=== PATIENT | female | born 1945 | race Caucasian/White ===

== ENCOUNTER 2017-12-13 09:25 | Emergency (ER) | payer MEDICARE, OTHER, SELFPAY | END 2017-12-13 12:35 | disposition home or self-care (01) | PROVIDERS: Emergency Provider Emergency Medicine; Family Provider Internal Medicine; PCP Internal Medicine; Visit Provider Emergency Medicine | DX: I49.3 Ventricular premature depolarization (principal); R07.89 Other chest pain | CPT/HCPCS: 36415; 71010; 71045; 80053; 81003; 81015; 84484; 85025; 85610; 85730; 93005; 93010; 99058; 99285 ==

== ENCOUNTER 2018-03-12 09:40 | Day surgery (SDC) | payer MEDICARE, OTHER, SELFPAY ==
--- NOTE | 2018-03-12 | PATH_ITS ---
[facility] Accession Number: [id number] . 01 Material submitted: . PART A: ASCENDING COLON POLYP PART B: COLON POLYP AT 36CM . 02 Diagnosis: A. Ascending Colon, Polyp, Biopsy: Tubular adenoma. . B. Colon, Polyp at 36 cm, Biopsy: Vegetable material only. Additional levels were examined. No colonic tissue present. MRV/03/15/2018 . 02 Electronically signed: . Beth Junior MD, Pathologist NPI- [id number] . 01 Gross description: . Part A: ASCENDING COLON POLYP: Received in formalin is 1 fragment(s) of vazquez, soft tissue measuring 0.4 x 0.3 x 0.2 cm submitted entirely in 1 cassette(s) Part B: COLON POLYP AT 36CM: Received in formalin is 1 fragment(s) of vazquez, soft tissue measuring 0.4 x 0.3 x 0.1 cm submitted entirely in 1 cassette(s) /TRC /TRC . 02 Pathologist provided ICD-10: D12.2 . 02 CPT . 544273, [id number] Performed at: 01 [facility] [address] [id number] MD Jordi Ambriz MD Phone: [phone] Performed at: 02 [facility] [address] [place], [place] [id number] MD Jared Bowden MD Phone: [phone]
[2018-03-12] MEDS: SODIUM CHLORIDE 0.9% 1,000 ML 200 ML IV (09:57)
[2018-03-12 10:05] VITALS: BP 122/65; PULSE 74; RESP 16; TEMP 36.4; O2SAT 94; BMI 29.5
--- NOTE | 2018-03-12 10:46 | PM.HP.1 ---
History of Present Illness Date Patient Seen: 03/12/18 Time Patient Seen: 10:47 Chief complaint: colonoscopy [id number] Narrative: Patient is a woman here for a screening colonoscopy. Her last exam was 5 years ago. She had multiple polyps removed at that time. No history of rectal bleeding. No family history of colon cancer. Patient History Surgical History History of carpal tunnel surgery of right wrist (Resolved) History of cone biopsy of cervix (Resolved) History of laparoscopy (Resolved) Family & Social History Social History: household members none Meds Home Medications Medication Instructions Recorded Confirmed Type CHOLECALCIFEROL (VITAMIN D3) 2,000 iu PO PRN #0 03/22/12 History (Vitamin D-3) aspirin 325 mg PO QDAY #0 04/12/17 History metformin [Glucophage XR] 750 mg PO [facility] #0 04/12/17 History Review of Systems Review of Systems All systems reviewed & are unremarkable except as noted in HPI and below Exam Vital Signs (past 8 hours): - 03/12/18 10:05 Temperature 97.5 F L Pulse Rate 74 Respiratory Rate 16 Blood Pressure 122/65 H Pulse Oximetry 94 Oxygen Delivery Method Room Air Narrative Exam Narrative: Operative no apparent distress. Lungs are clear to auscultation without rales or rhonchi. Heart regular rate and rhythm without murmur gallop. Abdomen is protuberant soft nontender without mass or hernia. Alert and oriented x3. Assessment & Plan (1) Screening for colon cancer: Current visit: Yes Status: Acute Plan: Assessment/Plan Narrative: Will proceed with colonoscopy. I have discussed the procedure and the rationale with the patient including risks of bleeding, perforation which would necessitate a major operation, failure to find remove all lesions and the potential to tattoo. They appeared to understand and wished to proceed.
--- NOTE | 2018-03-12 10:51 | P.HP_ITS ---
History of Present Illness Date Patient Seen: 03/12/18 Time Patient Seen: 10:47 Chief complaint: colonoscopy [id number] Narrative: Patient is a woman here for a screening colonoscopy. Her last exam was 5 years ago. She had multiple polyps removed at that time. No history of rectal bleeding. No family history of colon cancer. Patient History Surgical History History of carpal tunnel surgery of right wrist (Resolved) History of cone biopsy of cervix (Resolved) History of laparoscopy (Resolved) Family & Social History Social History: household members none Meds Home Medications Medication Instructions Recorded Confirmed Type CHOLECALCIFEROL (VITAMIN D3) 2,000 iu PO PRN #0 03/22/12 History (Vitamin D-3) aspirin 325 mg PO QDAY #0 04/12/17 History metformin [Glucophage XR] 750 mg PO [facility] #[facility] 04/12/17 History Review of Systems Review of Systems All systems reviewed & are unremarkable except as noted in HPI and below Exam Vital Signs (past 8 hours): - 03/12/18 10:05 Temperature 97.5 F L Pulse Rate 74 Respiratory Rate 16 Blood Pressure 122/65 H Pulse Oximetry 94 Oxygen Delivery Method Room Air Narrative Exam Narrative: Operative no apparent distress. Lungs are clear to auscultation without rales or rhonchi. Heart regular rate and rhythm without murmur gallop. Abdomen is protuberant soft nontender without mass or hernia. Alert and oriented x3. Assessment & Plan (1) Screening for colon cancer: Current visit: Yes Status: Acute Plan: Assessment/Plan Narrative: Will proceed with colonoscopy. I have discussed the procedure and the rationale with the patient including risks of bleeding, perforation which would necessitate a major operation, failure to find remove all lesions and the potential to tattoo. They appeared to understand and wished to proceed.
--- NOTE | 2018-03-12 10:51 | PM.PREOP ---
Pre-operative Note Interval Note Pre-op Check: Yes History & Physical exam performed today by Physician Changes: No ASA Class (for procedural sedation): I
--- NOTE | 2018-03-12 10:51 | SUR.OPER ---
to endo from opd via cart respirations unlabored iv patent positioned per self for procedure
--- NOTE | 2018-03-12 11:36 | PM.OP.ENDO ---
Operative Date/Time/Diagnoses Date of procedure: 03/12/18 Time of procedure: 11:36 Pre-op diagnosis: Screening examination. Last exam was about 5 years ago Post-op diagnosis: same (Sigmoid diverticulosis extensive with tortuosity. Polyps removed in the ascending colon and 35 cm.) Procedure & Clinicians Study performed: Colonoscopy with cold biopsy and hot snare polypectomy Same procedure as scheduled: Yes Indications: Screening. Personal history of polyps Surgeon: Deyvi Edwards Procedure Notes SCOAP/Timeout: Performed Procedure in detail: The patient was placed in the left lateral decubitus position and underwent IV sedation directed by the surgeon consisting of fentanyl and Versed. Digital exam was unremarkable except for decreased sphincter tone. The scope was inserted and advanced through the rectum into the sigmoid, descending, transverse, and ascending colon. The patient was noted to have extensive sigmoid diverticulosis with tortuosity. In fact I had to replace the regular scope with a pediatric scope in order to negotiate through her sigmoid.. The cecum was reached identified by the ileocecal valve and the appendiceal opening. The scope was gradually brought out. Polyps were found at[the ascending colon and at 35 cm from the anal verge. Cold biopsy forceps were used to remove the ascending colon polyp which was quite small. The lesion at 35 cm may have been a redundant fold but I could not get it to flatten out and therefore removed it.]. The scope ultimately was retroflexed in the rectum. The appearance was remarkable for internal hemorrhoids without ulceration.. The scope was removed and the patient tolerated the procedure well Scope withdrawal time: 14 min Sedation minutes: 41 Findings: diverticulosis, internal hemorrhoids and other findings (Quite tortuous through the sigmoid) Recommendations: Colonscopy in 5 years Follow up: as needed Disposition: PACU
--- NOTE | 2018-03-12 11:36 | SUR.OPER ---
tolerated procedure well
[2018-03-12] MEDS: fentaNYL 250 MCG/5 ML INJ IV (11:40)
[2018-03-12] MEDS: MIDAZOLAM 5 MG/5 ML VIAL 6 MG IV (11:41)
[2018-03-12 11:43] VITALS: BP 115/70; PULSE 77; RESP 15; TEMP 36.4; O2SAT 95
[2018-03-12 11:46] VITALS: BP 118/64; PULSE 76; RESP 16; O2SAT 95
[2018-03-12 11:49] VITALS: BP 112/61; RESP 16; TEMP 36.4; O2SAT 95
[2018-03-12 11:56] VITALS: BP 107/66; PULSE 67; RESP 15; TEMP 36.1; O2SAT 95
[2018-03-12 12:30] VITALS: BP 110/62; PULSE 72; RESP 16; TEMP 36.4; O2SAT 96
== END 2018-03-12 12:40 | disposition home or self-care (01) ==
PROVIDERS: PCP Internal Medicine; Visit Provider Specialist
PROC: 0DJD8ZZ Inspection of Lower Intestinal Tract, Via Natural or Artificial Opening Endoscopic (ICD-10-PCS; CPT 45378; principal; 2018-03-12 11:00)
DX: Z12.11 Encounter for screening for malignant neoplasm of colon (principal); K57.30 Diverticulosis of large intestine without perforation or abscess without bleeding; Z86.010 Personal history of colon polyps; K64.8 Other hemorrhoids; D12.2 Benign neoplasm of ascending colon
CPT/HCPCS: 45385; 45380; 88305; 99152; 99153; J2250; J3010

== ENCOUNTER → 2019-01-29 10:33 | Outpatient (CLI) | payer MEDICARE, OTHER, SELFPAY ==
[2019-01-29 12:42] LABS: Appearance Urine UA CLOUDY; Bilirubin Urine UA NEGATIVE (NEGATIVE); Color Urine UA YELLOW; Glucose Urine UA NEGATIVE (Negative); Ketones Urine UA NEGATIVE (NEGATIVE); Leukocyte Esterase Urine UA 3+ (NEGATIVE); Nitrite Urine UA NEGATIVE (Negative); Occult Blood Urine UA TRACE-LYSED (Negative); Protein Urine UA NEGATIVE (Negative); Specific Gravity Urine UA 1.015 (1.000-1.035); Urobilinogen Urine UA 0.2 E.U./dL (0.2)
[2019-01-29 12:58] LABS: Amorphous Sediment Urine 1+; Bacteria Urine Many (>30); Culture Indicated Urine Specimen Cultured; Mucus Urine 1+ (Negative); RBC Urine 0-1/HPF (0-5/HPF); Squamous Epithelial Cell Urine 1-5 /HPF (0-5/HPF); WBC Urine 30-100/HPF (0-5/HPF)
[2019-01-29 16:06] LABS: Creatinine Urine Random 49.6 mg/dL; Protein (Total) Urine Random 13 mg/dL (0-12); Protein Creatinine Ratio Urine 0.26 GRAM/24H
== END ==
PROVIDERS: PCP Internal Medicine; Visit Provider Internal Medicine
DX: R82.998 Other abnormal findings in urine (principal)
CPT/HCPCS: 81001; 82570; 84156; 87086

== ENCOUNTER → 2019-05-16 11:36 | Outpatient (CLI) | payer MEDICARE, OTHER, SELFPAY ==
--- NOTE | 2019-05-16 | DI.RAD.S_ITS ---
PROCEDURE: XR LUMBAR SPINE 2-3V INDICATIONS: POLYCYSTIC OVARIES TECHNIQUE: 3 views of the lumbar spine were acquired. COMPARISON: None. FINDINGS: Bones: 5 [id number] vertebrae are present. There is normal bony alignment. No vertebral body compression fractures. No suspicious bony lesions. There is only mild degenerative disc disease over the middle and lower thirds of the LS-spine and facet osteoarthritis becomes progressively more prominent from L3-S1. Soft tissues: Overlying bowel gas pattern is normal. No suspicious soft tissue calcifications. IMPRESSION: Mild to moderate degenerative disc disease and facet osteoarthritis overall without subluxation. No prior compression fracture found. Spinal and foraminal stenosis over the lower third of the LS-spine may be present given the degree of degeneration found in that area. Dictated by: Colt Rizo M.D. on 05/16/2019 at 12:36 Approved by: Colt Rizo M.D. on 05/16/2019 at 12:37
--- NOTE | 2019-05-16 | DI.RAD.S_ITS ---
PROCEDURE: XR HIP W PEL IF DONE LT 2V INDICATIONS: POLYCYSTIC OVARIES TECHNIQUE: AP pelvis with lateral view(s) of the left hip. COMPARISON: None. FINDINGS: Bones: No fractures or dislocations. Pelvic ring appears intact. No suspicious bony lesions. Soft tissues: The visualized bowel gas pattern is normal. No suspicious soft tissue calcifications. IMPRESSION: There is symmetric minimal hip joint osteoarthritis, no trauma. Dictated by: Colt Rizo M.D. on 05/16/2019 at 12:37 Approved by: Colt Rizo M.D. on 05/16/2019 at 12:38
== END ==
PROVIDERS: PCP Internal Medicine; Visit Provider Internal Medicine
DX: M25.552 Pain in left hip (principal); E28.2 Polycystic ovarian syndrome; K11.9 Disease of salivary gland, unspecified; M51.36 Other intervertebral disc degeneration, lumbar region; M51.37 Other intervertebral disc degeneration, lumbosacral region; M47.816 Spondylosis without myelopathy or radiculopathy, lumbar region; M47.817 Spondylosis without myelopathy or radiculopathy, lumbosacral region
CPT/HCPCS: 72100; 73502

== ENCOUNTER 2019-06-03 06:13 | Day surgery (SDC) | payer MEDICARE, OTHER, SELFPAY ==
[2019-06-03] MEDS: PROPARACAINE 0.5% OPHTH SOL 2 DROPS EYE-OP (07:14)
[2019-06-03] MEDS: CATARACT EYE COMPOUND (10 DROPS/SYRINGE) 3 DROPS EYE-OP (07:15)
[2019-06-03 07:21] VITALS: BP 120/64; PULSE 69; RESP 15; TEMP 36.2; O2SAT 95; BMI 30.9
--- NOTE | 2019-06-03 07:46 | PM.PREOP ---
Pre-operative Note Interval Note History & Physical reviewed/Exam performed by Physician: No Changes to H&P: No
--- NOTE | 2019-06-03 07:46 | PM.OP.1 ---
Operative Date/Time/Diagnoses Pre-op diagnosis: Nuclear cataract right eye Procedure & Clinicians Procedure: Cataract Surgery Same procedure as scheduled: Yes Surgeon: Pablo Mayorga Anesthesia Type: MAC +/- and Sedation Operative Notes Procedure in detail: Patient brought to the operating suite. Tetracaine drops placed in the right eye. Marking instrument was used to rob the vertical and horizontal meridians. Patient was prepped and draped in sterile manner. Wire lid speculum was placed in the eye. Marking instrument was used to rob the 10 degree meridian. Betadine drops were placed on the eye. This was irrigated. Lidocaine jelly was placed on the eye. A paracentesis port was created with a side-port blade. 0.1 mL 1% preservative free lidocaine was injected into the anterior chamber. The anterior chamber was deepened with viscoelastic. 2.6 mm keratome was used to create a temporal clear corneal incision. Cystotome and Utrata forceps were used to create continuous tear capsulorrhexis. Balanced salt solution was used to hydro dissect the nucleus. The phacoemulsification handpiece was inserted and the nucleus was removed using the stop and chop technique. The irrigation aspiration handpiece was inserted and the remaining cortex was removed. Anterior chamber was deepened with viscoelastic. An Fernandez [id number] intraocular lens with a power of 20.0 was injected into the capsular bag. Irrigation aspiration handpiece was inserted and the remaining viscoelastic was removed. The lens was rotated to the 10 degree meridian. Incision was hydrated with balanced salt solution and found to be leak free with pressure with Weck-Angeline sponges. 0.1 mL Vigamox injected anterior chamber. 0.3 mL Kenalog 10 mg was injected subconjunctivally. Lid speculum was removed. The patient left the operating room in excellent condition. Complications: none Post-operative Condition: stable Disposition: same day surgery
[2019-06-03] MEDS: PHENYLEPHRINE/LIDOCAINE VIAL (OR) 0.2 ML EYE-OP (07:55)
[2019-06-03] MEDS: TRIAMCINOLONE 50 MG/5 ML VIAL INJ (07:56)
[2019-06-03] MEDS: BALANCED SALT IRRIG SOLN NO.2 500 ML, EPINEPHrine 1 MG IRR (07:57)
[2019-06-03] MEDS: LIDOCAINE JELLY 2% 5 ML 1 APPLIC TOP (07:57)
[2019-06-03] MEDS: TETRACAINE 0.5% OPHTH DROPS 4 ML 2 DROPS EYE-OP (07:57)
[2019-06-03] MEDS: CHONDROIDTIN/SOD HYALURONATE 1.05 ML SYRINGE INTRAOCULA (07:57)
[2019-06-03] MEDS: MOXIFLOXACIN 0.5% OPHTH 60 DROPS/BOTTLE DROPS EYE-BOTH (07:58)
[2019-06-03 08:20] VITALS: BP 112/69; PULSE 79; RESP 16; TEMP 36.7; O2SAT 94
== END 2019-06-03 08:25 ==
LOC: OR 06:17
PROVIDERS: PCP Internal Medicine; Visit Provider Ophthalmology
PROC: (CPT 66984; principal; 2019-06-03 07:45)
DX: H25.11 Age-related nuclear cataract, right eye (principal)
CPT/HCPCS: 66984; J0171; J2250; J3010; J3301; V2787

== ENCOUNTER 2019-06-17 06:42 | Day surgery (SDC) | payer MEDICARE, OTHER, SELFPAY ==
[2019-06-17 08:03] VITALS: BP 115/67; PULSE 67; RESP 16; TEMP 36.4; O2SAT 95; BMI 30.9
[2019-06-17] MEDS: CATARACT EYE COMPOUND (10 DROPS/SYRINGE) 3 DROPS EYE-OP (08:10)
[2019-06-17] MEDS: PROPARACAINE 0.5% OPHTH SOL 2 DROPS EYE-OP (08:11)
--- NOTE | 2019-06-17 08:43 | PM.PREOP ---
Pre-operative Note Interval Note History & Physical reviewed/Exam performed by Physician: No Changes to H&P: No
--- NOTE | 2019-06-17 08:43 | PM.OP.1 ---
Operative Date/Time/Diagnoses Pre-op diagnosis: Nuclear Cataract Left eye Post-op diagnosis: same Procedure & Clinicians Surgeon: Pablo Mayorga Anesthesia Type: MAC +/- and Sedation Operative Notes Procedure in detail: Patient brought to the operating suite. Tetracaine drops placed in the left eye. Patient was prepped and draped in sterile manner. Wire lid speculum was placed in the eye. Betadine drops were placed on the eye. This was irrigated. Lidocaine jelly was placed on the eye. A paracentesis port was created with a side-port blade. 0.1 mL 1% preservative free lidocaine was injected into the anterior chamber. The anterior chamber was deepened with viscoelastic. 2.6 mm keratome was used to create a temporal clear corneal incision. Cystotome and Utrata forceps were used to create continuous tear capsulorrhexis. Balanced salt solution was used to hydro dissect the nucleus. The phacoemulsification handpiece was inserted and the nucleus was removed using the stop and chop technique. The irrigation aspiration handpiece was inserted and the remaining cortex was removed. Anterior chamber was deepened with viscoelastic. An Fernandez ZCB00 intraocular lens with a power of 19.5 was injected into the capsular bag. Irrigation aspiration handpiece was inserted and the remaining viscoelastic was removed. Incision was hydrated with balanced salt solution and found to be leak free with pressure with Weck-Angeline sponges. 0.1 mL Vigamox injected anterior chamber. 0.3 mL Kenalog 10 mg was injected subconjunctivally. Lid speculum was removed. The patient left the operating room in excellent condition. Complications: none Post-operative Condition: stable Disposition: same day surgery
[2019-06-17] MEDS: LIDOCAINE JELLY 2% 5 ML 1 APPLIC TOP (09:01)
[2019-06-17] MEDS: TRIAMCINOLONE 50 MG/5 ML VIAL INJ (09:01)
[2019-06-17] MEDS: CHONDROIDTIN/SOD HYALURONATE 1.05 ML SYRINGE INTRAOCULA (09:01)
[2019-06-17] MEDS: PHENYLEPHRINE/LIDOCAINE VIAL (OR) 0.2 ML EYE-OP (09:01)
[2019-06-17] MEDS: BALANCED SALT IRRIG SOLN NO.2 500 ML, EPINEPHrine 1 MG IRR (09:02)
[2019-06-17] MEDS: MOXIFLOXACIN 0.5% OPHTH 60 DROPS/BOTTLE DROPS EYE-BOTH (09:02)
[2019-06-17] MEDS: TETRACAINE 0.5% OPHTH DROPS 4 ML 2 DROPS EYE-OP (09:02)
[2019-06-17 09:16] VITALS: BP 111/67; PULSE 69; RESP 16; TEMP 36.2; O2SAT 92
== END 2019-06-17 09:26 | disposition home or self-care (01) ==
LOC: OR 06:45
PROVIDERS: PCP Internal Medicine; Visit Provider Ophthalmology
PROC: (CPT 66984; principal; 2019-06-17 08:45)
DX: H25.12 Age-related nuclear cataract, left eye (principal); E11.9 Type 2 diabetes mellitus without complications; F17.210 Nicotine dependence, cigarettes, uncomplicated
CPT/HCPCS: 66984; J0171; J2250; J3010; J3301

== ENCOUNTER → 2019-07-20 09:43 | Outpatient (CLI) | payer MEDICARE, OTHER, SELFPAY | PROVIDERS: PCP Internal Medicine; Visit Provider Nurse Practitioner | DX: R30.0 Dysuria (principal) | CPT/HCPCS: 87086 ==

== ENCOUNTER → 2019-07-30 09:44 | Outpatient (CLI) | payer MEDICARE, OTHER, SELFPAY ==
[2019-07-30 09:56] LABS: Bacteria Urine None Seen; RBC Urine None Seen (0-5/HPF); WBC Urine None Seen (0-5/HPF)
[2019-07-30 10:11] LABS: Appearance Urine UA CLEAR; Bilirubin Urine UA NEGATIVE (NEGATIVE); Color Urine UA YELLOW; Glucose Urine UA NEGATIVE (Negative); Ketones Urine UA NEGATIVE (NEGATIVE); Leukocyte Esterase Urine UA NEGATIVE (NEGATIVE); Nitrite Urine UA NEGATIVE (Negative); Occult Blood Urine UA TRACE-INTACT (Negative); Protein Urine UA NEGATIVE (Negative); Specific Gravity Urine UA <=1.005 (1.000-1.035); Urobilinogen Urine UA 0.2 E.U./dL (0.2)
[2019-07-30 10:20] LABS: pH Urine UA 6.5 (4.5-8.0)
[2019-07-30 10:22] LABS: Urine Comments Microscopic Normal
== END ==
PROVIDERS: PCP Internal Medicine; Visit Provider Internal Medicine
DX: N39.0 Urinary tract infection, site not specified (principal)
CPT/HCPCS: 81001

== ENCOUNTER → 2019-08-14 18:37 | Outpatient (ROUT) | payer MEDICARE, OTHER, SELFPAY | PROVIDERS: PCP Internal Medicine; Visit Provider Internal Medicine | DX: N39.0 Urinary tract infection, site not specified (principal) | CPT/HCPCS: 87086 ==

== ENCOUNTER → 2019-09-26 12:22 | Outpatient (ROUT) | payer MEDICARE, OTHER, SELFPAY | PROVIDERS: PCP Internal Medicine; Visit Provider Physician Assistant | DX: R39.9 Unspecified symptoms and signs involving the genitourinary system (principal) | CPT/HCPCS: 87077; 87086; 87186 ==

== ENCOUNTER → 2019-12-03 13:00 | Outpatient (CLI) | payer MEDICARE, OTHER, SELFPAY ==
--- NOTE | 2019-12-03 13:48 | DI.CT.S_ITS ---
PROCEDURE: CT ABDOMEN PELVIS WO/W CON INDICATIONS: Gross hematuria TECHNIQUE: Optional 5 mm thick noncontrast images acquired from the diaphragm to the symphysis pubis. After the administration of intravenous contrast, 5 mm thick images acquired from the diaphragm to the symphysis pubis after a 10-minute delay. 2 mm thick coronal and sagittal reformats were then performed of the kidneys and ureters. For radiation dose reduction, the following was used: automated exposure control, adjustment of mA and/or kV according to patient size. COMPARISON: None. FINDINGS: Image quality: Excellent. Lung bases: Lung bases are clear. Heart size is normal. Urinary system: Both kidneys are normal in size, without hydronephrosis or nephrolithiasis on pre-contrast images. No perinephric fat stranding. There is normal bilateral renal enhancement. Renal calyces appear normal in morphology when filled with contrast. Opacified portions of both ureters demonstrate normal caliber. Mild bladder wall thickening. Minimal air in the bladder. No calcified bladder stones. Incidental note is made of pelvic floor relaxation with a prominent cystocele, as well as a rectocele or a. Other solid organs: Liver is normal in size and enhancement. Gallbladder is unremarkable. Biliary system is non dilated. Pancreas enhances normally. Spleen is normal in size and enhancement. No adrenal nodules. Peritoneum and bowel: Bowel loops demonstrate normal wall thickness and caliber. No free fluid or air. Small hiatal hernia. Sigmoid diverticulosis without evidence of diverticulitis. Nodes and vessels: No retroperitoneal or mesenteric adenopathy by size criteria. Aorta and inferior vena cava are normal in size. Abdominal wall: No ventral hernias. Pelvis: No pathologic free pelvic fluid. No inguinal hernias or adenopathy. Bones: No suspicious bony lesions. No vertebral body compression fractures. Impressive bilateral L4-L5 and L5-S1 facet arthropathy. Canal stenosis at L4-L5. IMPRESSION: 1. No evidence of renal stones no ureteral stone, hydronephrosis, or malignancy. 2. Mild diffuse bladder wall thickening and small amount of air present in the bladder. If the patient has not undergone self-catheterization, findings would be consistent with cystitis. 3. Pelvic floor relaxation with prominent cystocele as well as a rectocele. 4. Sigmoid diverticulosis. 5. Advanced lower lumbar facet arthropathy, Canal stenosis at L4-L5. Dictated by: Slava Carnes M.D. on 12/03/2019 at 15:09 Approved by: Slava Carnes M.D. on 12/03/2019 at 15:16
== END ==
PROVIDERS: PCP Internal Medicine; Referring Provider Urology; Visit Provider Urology
DX: R31.0 Gross hematuria (principal); K44.9 Diaphragmatic hernia without obstruction or gangrene; K57.30 Diverticulosis of large intestine without perforation or abscess without bleeding; N81.10 Cystocele, unspecified; N81.6 Rectocele; M47.816 Spondylosis without myelopathy or radiculopathy, lumbar region; M48.061 Spinal stenosis, lumbar region without neurogenic claudication
CPT/HCPCS: 74178; Q9967

== ENCOUNTER → 2020-01-16 13:04 | Outpatient (CLI) | payer MEDICARE, OTHER, SELFPAY ==
[2020-01-16 14:25] LABS: Hemoglobin A1C% w Est Avg Glu 7.1 % (4.0-6.0)
== END ==
PROVIDERS: PCP Internal Medicine; Referring Provider Internal Medicine; Visit Provider Internal Medicine
DX: E11.9 Type 2 diabetes mellitus without complications (principal)
CPT/HCPCS: 36415; 83036

== ENCOUNTER → 2020-06-22 19:45 | Outpatient (ROUT) | payer MEDICARE, OTHER, SELFPAY ==
[2020-06-22 20:50] LABS: Hematocrit 40.5 % (36-46); Hemoglobin 13.1 g/dL (12.0-16.0); Mean Corpuscular HGB Conc 32.4 % (30-36); Mean Corpuscular Hemoglobin 30.1 PG (26-34); Mean Corpuscular Volume 92.9 fL (80-100); Platelet Count 330 X10^3/uL (150-400); Red Blood Cell Count 4.36 X10^6/uL (4.0-5.2); Red Cell Distribution Width 14.3 % (11.6-14.8); White Blood Cell Count 7.6 X10^3/uL (4.5-11.0)
[2020-06-22 21:03] LABS: Alanine Aminotransferase 22 IU/L (<35); Albumin 4.1 g/dL (3.5-5.0); Albumin Globulin Ratio 1.4 (1.0-2.8); Alkaline Phosphatase 89 U/L (38-126); Aspartate Aminotransferase 23 IU/L (14-36); BUN Creatinine Ratio 24.1 (6-22); Bilirubin Total 0.4 mg/dL (0.2-1.3); Blood Urea Nitrogen 14 mg/dL (7-17); Calcium 9.8 mg/dL (8.4-10.2); Carbon Dioxide 26 mmol/L (22-32); Chloride 107 mmol/L (98-107); Estimated Glomerular Filt Rate > 60.0 mL/min (>60); Globulin 2.9 g/dL (1.7-4.1); Glucose 90 mg/dL (80-110); HEMOLYSIS < 15 (0-50); Potassium 4.8 mmol/L (3.4-5.1); Sodium 137 mmol/L (137-145)
[2020-06-22 21:11] LABS: NT-proBNP (BNP-Adult 18+) 161 pg/mL (<125)
[2020-06-22 21:22] LABS: Neutrophils Absolute Manual 3572 /uL (3000-5900); RBC Morphology Normal Morphology; Total Cells Counted 100
[2020-06-22 21:38] LABS: TSH w/ Reflex to FT4 1.06 uIU/mL (0.47-4.68)
== END ==
PROVIDERS: PCP Internal Medicine; Visit Provider Internal Medicine
DX: E11.9 Type 2 diabetes mellitus without complications (principal); R53.83 Other fatigue; E78.5 Hyperlipidemia, unspecified; R06.02 Shortness of breath; R01.1 Cardiac murmur, unspecified; N39.0 Urinary tract infection, site not specified
CPT/HCPCS: 80053; 83880; 84443; 85025; 87086

== ENCOUNTER → 2020-08-12 19:46 | Outpatient (ROUT) | payer MEDICARE, OTHER, SELFPAY | PROVIDERS: PCP Internal Medicine; Visit Provider Physician Assistant | DX: N39.0 Urinary tract infection, site not specified (principal) | CPT/HCPCS: 87077; 87086; 87186 ==

== ENCOUNTER → 2020-10-19 18:49 | Outpatient (ROUT) | payer MEDICARE, OTHER, SELFPAY | PROVIDERS: PCP Internal Medicine; Visit Provider Family Medicine | DX: N39.0 Urinary tract infection, site not specified (principal) | CPT/HCPCS: 87086 ==

== ENCOUNTER → 2020-11-03 15:06 | Outpatient (ROUT) | payer MEDICARE, OTHER, SELFPAY | PROVIDERS: PCP Internal Medicine; Visit Provider Internal Medicine | DX: N39.0 Urinary tract infection, site not specified (principal) | CPT/HCPCS: 87077; 87086; 87186 ==

== ENCOUNTER → 2022-11-08 | Outpatient (CLI) | payer MEDICARE, OTHER, SELFPAY ==
--- NOTE | 2022-11-08 | DI.RAD.S_ITS ---
Bone Density Report Name: LISE GIBSON Age: 77 Sex: Female Ethnicity: White Date of : 1945 Indication: postmenopausal; screening for osteoporosis; Referring Provider: KALIN CHUNG Study: Bone densitometry was performed. Exam Date: November 08, 2022 Accession number: [id number] Bone Density: Region BMD T-score Z-score Classification AP Spine(L1-L4) 0.875 -1.6 0.9 Osteopenia Femoral Neck (Left) 0.725 -1.1 1.0 Osteopenia Total Hip (Left) 0.778 -1.3 0.5 Osteopenia Femoral Neck (Right) 0.722 -1.1 1.0 Osteopenia Total Hip (Right) 0.756 -1.5 0.3 Osteopenia Total Hip Mean 0.767 -1.4 0.4 Osteopenia World Health Organization criteria for BMD impression classify patients as: Normal (T-score at or above -1.0), Osteopenia (T-score between -1.0 and -2.5), or Osteoporosis (T-score at or below -2.5). 10-year Fracture Risk(1): Major Osteoporotic Fracture 10% Hip Fracture 2.7% Reported Risk Factors: [place] (), Neck BMD=0.725, BMI=29.2, smoking (1) FRAX(R) Version 3.08. Fracture probability calculated for an untreated patient. Fracture probability may be lower if the patient has received treatment. Impression: The patient has low bone mass, based on the Total Spine T-score. The patient has an estimated ten-year risk of hip fracture of 2.7% and an estimated ten-year risk of major fracture of 10%, based on the WHO FRAX algorithm. The patient has risk factors, including: smoking. Discussion: BONE DENSITY IS LOW AT ONE OR MORE SKELETAL SITES. This patient's lowest T-score is low at one or more skeletal sites. It meets the World Health Organization's (WHO) criteria for low bone mass (T-score between -1.0 and -2.5). The patient's 10-year risk of fracture as calculated by FRAX is less than the threshold where pharmacological therapy is recommended by the National Osteoporosis Foundation (NOF). However, all treatment decisions require clinical judgment and consideration of individual patient factors, including patient preferences, comorbidities, previous drug use, risk factors not captured in the FRAX model (e.g., frailty, falls, vitamin D deficiency, increased bone turnover, interval significant decline in bone density) and possible under or overestimation of fracture risk by FRAX. The patient should follow a healthful lifestyle (good nutrition with adequate calcium and vitamin D, and appropriate weight-bearing exercise). Follow-Up: Consider repeating this study in 2 to 3 years to reassess this patient's status, or sooner if there is some new clinical indication. Reported by: MARICRUZ MCCULLOUGH MD on 11/08/2022 10:19:00 AM.
== END ==
LOC: RAD 10:21
PROVIDERS: PCP Student in an Organized Health Care Education/Training Program; Referring Provider Student in an Organized Health Care Education/Training Program; Visit Provider Student in an Organized Health Care Education/Training Program
DX: Z78.0 Asymptomatic menopausal state (principal); Z13.820 Encounter for screening for osteoporosis; M85.88 Other specified disorders of bone density and structure, other site
CPT/HCPCS: 77080

== ENCOUNTER 2023-04-19 07:38 | Day surgery (SDC) | payer MEDICARE, OTHER, SELFPAY ==
--- NOTE | 2023-04-19 | PATH_ITS ---
[facility] Accession Number: [id number] No. of containers..01 Tissue . 01 Material submitted: . colon - ASCENDING . 01 Diagnosis: Ascending Colon Polyp, Biopsy: Tubular adenoma. [facility] 05/02/2023 1401 Local . 01 Electronically signed: . Jany Gonzalez MD, Pathologist NPI- [id number] . 01 Gross description: . ASCENDING : Received in formalin is 1 fragment(s) of vazquez, soft tissue measuring 1.1 x 0.5 x 0.3 cm submitted entirely in 1 cassette(s) /GET 04/20/2023 1531 Local . 01 Pathologist provided ICD-10: D12.2 . 01 CPT . 900969 Specimen Comment: A courtesy copy of this report has been sent to [phone] Performed at: 01 [facility] [address] [place] [id number] MD Jordi Ambriz MD Phone: [phone]
[2023-04-19] MEDS: LACTATED RINGERS 1,000 ML 42 ML IV (07:48)
[2023-04-19 07:58] VITALS: BMI 28.3
[2023-04-19 08:20] VITALS: BP 127/68; PULSE 57; RESP 16; TEMP 36.2; O2SAT 96
--- NOTE | 2023-04-19 09:53 | PM.OP.COLON ---
Operative Date/Time/Diagnoses Date of procedure: 04/19/23 Time of procedure: 09:53 Pre-op diagnosis: History of polyps Post-op diagnosis: same Procedure & Clinicians Study performed: Colonoscopy Same procedure as scheduled: Yes Surgeon: Andrea Pittman Procedure Notes Procedure in detail: Surgeon: Andrea Pittman MD Anesthesia: Wilfred Martinez CRNA Procedure: The patient was brought to the endoscopy suite, placed in left lateral decubitus position. The patient was connected to monitoring devices. A time-out was performed. Sedation was administered. Once the patient was adequately sedated, a digital rectal exam was performed and was normal. The scope was then inserted and advanced to the cecum where the appendiceal orifice was identified and photographed. The scope was then slowly withdrawn over greater than 6 minutes. The mucosa was thoroughly inspected. A 5 mm polyp was removed from the ascending colon with the cold forceps. No other abnormalities were seen. The scope was retroflexed in the rectum. No abnormalities were noted. The scope was straightened and removed. The patient was awakened and brought to recovery. Scope withdrawal time: 13 minutes Sedation time: 31 minute EBL: 2 mL Findings: 5 mm ascending colon polyp Post-procedure Disposition: PACU
[2023-04-19 09:55] VITALS: BP 102/70; PULSE 78; RESP 12; TEMP 36.5; O2SAT 92
--- NOTE | 2023-04-19 09:56 | PM.HP.1 ---
History of Present Illness History of Present Illness Date Patient Seen: 04/19/23 Time Patient Seen: 09:57 Chief complaint: SDC Narrative: Radha is a 78-year-old woman who is here for colonoscopy. Her last 1 was about 5 years ago and a polyp was removed that was a tubular adenoma. No known family history. [facility] Medical History (Updated 04/19/23 @ 09:57 by Andrea Pittman MD) Arrhythmia Diabetes mellitus First degree AV block Hearing loss History of UTI Surgical History History of carpal tunnel surgery of right wrist History of cone biopsy of cervix History of laparoscopy Social History household members: none Smoking Status: Current every day smoker alcohol intake: never Meds Home Medications and Allergies Home Medications Medication Instructions Recorded Confirmed Type Vitamin D3 Complete 2,000 iu PO DAILY ##0 03/22/12 04/19/23 History metformin 750 mg tablet,extended 500 mg PO BID ##0 04/12/17 04/19/23 History release 24 hr (Glucophage XR) pravastatin 1 tab PO QPM 06/03/19 04/19/23 History sodium,potassium,mag sulfates 17.5 See Rx Instructions PO .COMPLEX 03/02/23 04/19/23 Rx gram-3.13 gram-1.6 gram oral soln #354 mL (Suprep Bowel Prep Kit) aspirin 162 mg tablet,delayed 162 mg PO DAILY 04/19/23 04/19/23 History release Allergies Allergy/AdvReac Type Severity Reaction Status Date / Time No Known Drug Allergies Allergy Verified 04/19/23 07:58 Exam Vital Signs (past 8 hours): - 04/19/23 08:20 Temperature 97.2 F L Pulse Rate 57 L Respiratory Rate 16 Blood Pressure 127/68 Pulse Oximetry 96 Oxygen Delivery Method Room Air Oxygen Delivery Method Room Air Const General: healthy appearing Assessment & Plan Assessment and plan (1) History of colon polyps: Status: Acute Plan We reviewed the risks and benefits of colonoscopy and she would like to proceed.
[2023-04-19 10:03] VITALS: BP 102/64; PULSE 78; RESP 12; O2SAT 95
[2023-04-19 10:05] VITALS: BP 102/63; PULSE 72; RESP 18; TEMP 36.4; O2SAT 94
[2023-04-19 10:10] VITALS: BP 119/61; PULSE 70; RESP 16; O2SAT 95
== END 2023-04-19 10:30 | disposition home or self-care (01) ==
PROVIDERS: PCP Student in an Organized Health Care Education/Training Program; Referring Provider Surgery; Visit Provider Surgery
PROC: 0DJD8ZZ Inspection of Lower Intestinal Tract, Via Natural or Artificial Opening Endoscopic (ICD-10-PCS; CPT 45378; principal; 2023-04-19 09:00)
DX: Z12.11 Encounter for screening for malignant neoplasm of colon (principal); Z86.010 Personal history of colon polyps; D12.2 Benign neoplasm of ascending colon
CPT/HCPCS: 45380; J2704

== ENCOUNTER → 2024-03-03 07:58 | Outpatient (CLI) | payer MEDICARE, OTHER, SELFPAY ==
--- NOTE | 2024-03-03 07:59 | DI.US.S_ITS ---
PROCEDURE: US CAROTID DOPPLER BI INDICATIONS: CAROTID STENOSIS SCREEN / HYPERLIPIDEMIA TECHNIQUE: Color and pulse Doppler interrogation was performed of both carotid systems, with image documentation and velocity measurements. COMPARISON: None. FINDINGS: Stenosis calculations are based on SRU (Society of Radiologists in Ultrasound) criteria. Right side: Brachial blood pressure: 115/66 mm Hg. Common carotid artery peak systolic velocity: 39 cm/sec. Internal carotid artery peak systolic velocity: Greater than 411 cm/sec. Internal carotid artery end diastolic velocity: Greater than 200 cm/sec. External carotid artery peak systolic velocity: 79 cm/sec. ICA/CCA peak systolic ratio: Greater than 10.5 . Esqueda scale imaging description: Significant plaque. Secondary to tortuosity of vessel and ability to obtain values, the velocities are felt to be underestimated. Percent internal carotid artery stenosis: Significant high-grade stenosis . Vertebral artery: Flow direction is antegrade. Left side: Brachial blood pressure: 120/59 mm Hg. Common carotid artery peak systolic velocity: 84 cm/sec. Internal carotid artery peak systolic velocity: 195 cm/sec. Internal carotid artery end diastolic velocity: 78 cm/sec. External carotid artery peak systolic velocity: 67 cm/sec. ICA/CCA peak systolic ratio: 2.3 . Esqueda scale imaging description: Moderate plaque Percent internal carotid artery stenosis: 50-69% . Vertebral artery: Flow direction is antegrade. IMPRESSION: Significant high-grade occlusion, greater than 70%/near occlusion in the right internal carotid artery as above. 50-69% stenosis of the left internal carotid artery. Dictated by: Tasia Cordero M.D. on 03/03/2024 at 12:16 Approved by: Tasia Cordero M.D. on 03/03/2024 at 13:35
== END ==
LOC: US 07:59
PROVIDERS: PCP Student in an Organized Health Care Education/Training Program; Referring Provider Student in an Organized Health Care Education/Training Program; Visit Provider Student in an Organized Health Care Education/Training Program
DX: Z13.6 Encounter for screening for cardiovascular disorders (principal); E11.69 Type 2 diabetes mellitus with other specified complication; E78.5 Hyperlipidemia, unspecified; I65.23 Occlusion and stenosis of bilateral carotid arteries
CPT/HCPCS: 93880

== ENCOUNTER → 2024-10-03 09:26 | Outpatient (CLI) | payer MEDICARE, OTHER, SELFPAY ==
--- NOTE | 2024-10-03 09:28 | DI.CT.S_ITS ---
PROCEDURE: CT LUNG LOW DOSE SCREENING INDICATIONS: LUNG SCREENING TECHNIQUE: Noncontrast 2.0-2.5 mm thick sections acquired from the pulmonary apices to the posterior costophrenic angles. 7 mm thick axial MIP, and 5 mm coronal and sagittal reformats were then acquired. For radiation dose reduction, the following was used: automated exposure control, adjustment of mA and/or kV according to patient size. COMPARISON: None. FINDINGS: Image quality: Diagnostic. Lower Neck: No enlarged lymph nodes. Thyroid: No thyroid nodules which require sonographic follow up, per consensus guidelines. Axillae: No enlarged lymph nodes. Chest Wall: Unremarkable. Bones: Unremarkable. Lungs and Pleura: No pneumothorax or pleural effusions. No consolidation or suspicious nodules.. Bibasilar scarring Heart: Heart size is normal. No pericardial effusion. Thoracic Vessels: The aorta and pulmonary arteries demonstrate normal size. Mediastinum and Mee: No enlarged lymph nodes. Esophagus: No wall thickening. No hiatal hernia. Upper Abdomen: Visualized upper abdomen solid organs and bowel loops appear normal. IMPRESSION: No suspicious pulmonary nodules. LUNG-RADS 1; continued annual screening, if eligible. Clinically Significant Non-pulmonary Findings: None. Approved by: Ahmet Rich M.D. on 10/03/2024 at 17:54
== END ==
PROVIDERS: PCP Physician Assistant; Referring Provider Physician Assistant; Visit Provider Physician Assistant
DX: Z12.2 Encounter for screening for malignant neoplasm of respiratory organs (principal); F17.210 Nicotine dependence, cigarettes, uncomplicated
CPT/HCPCS: 71271

== ENCOUNTER → 2024-12-31 14:06 | Outpatient (CLI) | payer MEDICARE, OTHER, SELFPAY ==
[2024-12-31 17:59] LABS: Appearance Urine UA CLEAR; Bilirubin Urine UA NEGATIVE (NEGATIVE); Color Urine UA YELLOW; Glucose Urine UA NEGATIVE (Negative); Ketones Urine UA NEGATIVE (NEGATIVE); Leukocyte Esterase Urine UA NEGATIVE (NEGATIVE); Nitrite Urine UA NEGATIVE (Negative); Occult Blood Urine UA NEGATIVE (Negative); Protein Urine UA NEGATIVE (Negative); Specific Gravity Urine UA 1.015 (1.000-1.035); Urobilinogen Urine UA 0.2 E.U./dL (0.2); pH Urine UA 5.5 (4.5-8.0)
[2024-12-31 18:12] LABS: Bacteria Urine None Seen; Culture Indicated Urine Cult Not Indicated; RBC Urine None Seen (0-5/HPF); Squamous Epithelial Cell Urine 0-1 /HPF (0-5/HPF); Urine Volume 10mL (spun); WBC Urine None Seen (0-5/HPF)
== END ==
LOC: LAB 14:32
PROVIDERS: PCP Physician Assistant; Visit Provider Obstetrics & Gynecology Gynecology
DX: R33.9 Retention of urine, unspecified (principal); N39.0 Urinary tract infection, site not specified
CPT/HCPCS: 81001

== ENCOUNTER → 2025-02-19 11:55 | Outpatient (CLI) | payer MEDICARE, OTHER, SELFPAY ==
--- NOTE | 2025-02-19 11:57 | DI.RAD.S_ITS ---
PROCEDURE: XR RIBS LT MIN 3V W CXR1V INDICATIONS: Please evaluate for rib fracture pneumo TECHNIQUE: 2 views of the ribs were acquired, along with a single view chest. COMPARISON: [facility], CT, CT LUNG LOW DOSE SCREENING, 10/03/2024, 9:31. FINDINGS: This examination is limited by involuntary motion artifact. Surgical changes and devices: None. Bones and chest wall: A marker is placed upon the area of clinical concern. Within this region, no displaced rib fracture or other significant rib abnormality can be seen. No rib fractures are seen elsewhere. No suspicious bony lesions. Age-appropriate bony degenerative changes are seen. Overlying soft tissues appear unremarkable. Lungs and pleura: No pleural effusions or pneumothorax. Lungs appear clear. Mediastinum: Mediastinal contours appear normal. Heart size is normal. IMPRESSION: No displaced rib fracture or pneumothorax. Dictated by: Vince Yarbrough M.D. on 02/19/2025 at 11:31 Approved by: Vince Yarbrough M.D. on 02/19/2025 at 11:32
== END ==
PROVIDERS: PCP Physician Assistant; Referring Provider Chiropractor; Visit Provider Chiropractor
DX: S20.212A Contusion of left front wall of thorax, initial encounter (principal); X58.XXXA Exposure to other specified factors, initial encounter
CPT/HCPCS: 71101

== ENCOUNTER → 2025-03-23 11:55 | Outpatient (CLI) | payer MEDICARE, OTHER, SELFPAY ==
--- NOTE | 2025-03-23 11:56 | DI.RAD.S_ITS ---
PROCEDURE: XR DEXA AXIAL SKELETON INDICATIONS: Screening COMPARISON: [facility], , XR DEXA AXIAL SKELETON, 11/08/2022, 10:10. FINDINGS: Lumbar Spine: Bone mineral density 0.85 g/cm2, T score -1.5, previously -1.6. Left Femoral Neck: Bone mineral density 0.70 g/cm2, T score -1.3, previously -1.1 Left Hip: Bone mineral density 0.76 g/cm2, T score -1.5, previously -1.3. Fracture Risk Calculation (when applicable): 10-year fracture risk of a major osteoporotic fracture 12 percent and of a hip fracture 3.8 percent. (T score greater or equal to -1.0 to: NORMAL) (T score from -1.1 to -2.4: OSTEOPENIA) (T score less than or equal to -2.5: OSTEOPOROSIS) IMPRESSION: Osteopenia with elevated FRAX calculation as above Follow-up guidelines as follows: Osteoporosis: Consider a repeat DEXA and Vertebral Fracture Assessment (VFA) exam in 2 years or sooner if medically necessary, to reassess this patient's status. Osteopenia: Consider a repeat DEXA in 2-3 years to reassess this patient's status, or if there is a new clinical indication. Normal: Consider a repeat DEXA in 5 years or sooner, or if there is a new clinical indication. All treatment decisions require clinical judgment and consideration of individual patient factors, including patient preferences, comorbidities, previous drug use, risk factors not captured in the FRAX model (e.g., frailty, falls, vitamin D deficiency, increased bone turnover, interval significant decline in bone density ) and possible under- or over-estimation of fracture risk by FRAX. In addition, the NOF Guide recommends that FDA-approved medical therapies be considered in postmenopausal women and men age >= 50 years with a: * Hip or vertebral (clinical or morphometric) fracture * T-score of <=-2.5 at the spine or hip * Ten-year fracture probability by FRAX of >= 3% for hip fracture or >=20% for major osteoporotic fracture. Dictated by: Teodoro Hedrick M.D. on 03/23/2025 at 14:27 Approved by: Teodoro Hedrick M.D. on 03/23/2025 at 14:28
== END ==
PROVIDERS: PCP Physician Assistant; Referring Provider Physician Assistant; Visit Provider Physician Assistant
DX: M85.89 Other specified disorders of bone density and structure, multiple sites (principal); Z78.0 Asymptomatic menopausal state
CPT/HCPCS: 77080

== ENCOUNTER → 2025-05-19 08:31 | Outpatient (CLI) | payer MEDICARE, OTHER, SELFPAY ==
[2025-05-19 09:42] LABS: Cholesterol 136 mg/dL (140-199); HDL Cholesterol 59 mg/dL (40-60); Triglycerides 104 mg/dL (35-150)
== END ==
PROVIDERS: PCP Physician Assistant; Referring Provider Internal Medicine Cardiovascular Disease; Visit Provider Internal Medicine Cardiovascular Disease
DX: E78.5 Hyperlipidemia, unspecified (principal); I25.10 Atherosclerotic heart disease of native coronary artery without angina pectoris
CPT/HCPCS: 36415; 80061